=== PATIENT | female | born 1950 | race Two or more races ===

== ENCOUNTER → 2018-06-28 | Outpatient (CLI) | payer OTHER | END | disposition home or self-care (01) | LOC: SONOGRAMA 10:16 | DX: E04.2 Nontoxic multinodular goiter (principal) ==

== ENCOUNTER 2023-12-26 05:16 | Day surgery (SDC) | payer OTHER ==
[~2023-12-26 05:16] MED LIST: BACLOFEN20 MG PO; CARVEDILOL12.5 MG; LEVO-T25 MCG PO; NORVASC10 MG PO; PEPCID40 MG PO; PREVACID30 M1 PO; TRIAMTERENE-HC1 EAC3 PO
[2023-12-26] MEDS ORDERED: CIPROFLOXACIN IN 5 % DEXTROSE 400 MG/200 ML PIGGYBAG IV ONE ×2 (07:01→07:45)
[2023-12-26] MEDS ORDERED: LIDOCAINE HCL/EPINEPHRINE 10MG/ML 1% 50ML IJ ONE ×2 (07:25→07:45)
[2023-12-26] MEDS ORDERED: GENTAMICIN SULFATE 40 MG/ML VIAL ONE (07:26)
[2023-12-26] MEDS ORDERED: VANCOMYCIN HCL 1,000 MG VIAL ONE (07:26)
[2023-12-26] MEDS ORDERED: VANCOMYCIN HCL 1,000 MG VIAL IR ONE (08:45)
[2023-12-26] MEDS ORDERED: GENTAMICIN SULFATE 40 MG/ML VIAL IR ONE (08:45)
[2023-12-26] MEDS ORDERED: MACROBID 100 M100 MG PO (09:00)
[2023-12-26] MEDS ORDERED: TRAM1TAB98 PO (09:04)
== END 2023-12-26 11:45 | disposition home or self-care (01) ==
LOC: CIR.AMB 05:16
PROVIDERS: ATTEND Obstetrics & Gynecology Gynecology
DX: N81.11 Cystocele, midline (principal); N81.6 Rectocele; N81.5 Vaginal enterocele; Z88.0 Allergy status to penicillin; Z88.6 Allergy status to analgesic agent